=== PATIENT | female | born 1990 | race Caucasian/White ===

== ENCOUNTER 2021-02-20 18:09 | Emergency (ER) | payer OTHER ==
[~2021-02-20] VITALS: Ht 165.1 cm; Wt 95.3 kg
[~2021-02-20 18:09] MED LIST: AMOXICILLIN500 MG PO; IBUPROFEN 30 M800 MG PO; PREDNICOT20 MG PO; TESSALON PERLE200 MG PO; TRAMADOL HCL50 MG PO
== END 2021-02-20 22:03 | disposition home or self-care (01) ==
LOC: ED 18:09
DX: R51.9 Headache, unspecified (principal); R11.2 Nausea with vomiting, unspecified; R42 Dizziness and giddiness

== ENCOUNTER → 2023-10-20 | Outpatient (CLI) | payer OTHER | END | disposition home or self-care (01) | LOC: US 10-13 14:30 | PROVIDERS: ATTEND Nurse Practitioner Women's Health | DX: Z34.81 Encounter for supervision of other normal pregnancy, first trimester (principal); Z3A.08 8 weeks gestation of pregnancy ==

== ENCOUNTER → 2023-12-25 | Outpatient (CLI) | payer OTHER ==
[2023-12-25 09:47] LABS: BASO % 0.3 % (0.0-1.0); BILIRUBIN Negative (Negative); BLOOD Negative (Negative); CLARITY Clear (Clear); COLOR Dark Yellow (Yellow); EOS # 0.2 10*3/uL (0.0-0.4); EOS % 2.1 % (1.0-4.0); GLUCOSE Negative (Negative); HEMATOCRIT 33.1 % (37.0-47.0); KETONE Trace (Negative); LEUKO ESTERASE Negative (Negative); LYMPH # 1.3 10*3/uL (1.3-4.4); LYMPH % 12.5 % (27.0-41.0); MEAN CELL VOLUME 90.9 fl (81.0-99.0); MEAN CORPUSCULAR HGB 32.7 pg (27.0-31.0); MEAN PLATELET VOLUME 10.7 fl (9.6-12.3); MONO # 0.4 10*3/uL (0.1-1.0); MONO % 4.1 % (3.0-9.0); NEUT # 8.3 10*3/uL (2.3-7.9); NITRITE Negative (Negative); PH 5.5 (4.5-8.0); PLATELET COUNT AUTOMATED 215 10*3/uL (130-400); RED BLOOD COUNT 3.64 10*6/uL (4.10-5.10); RED CELL DISTRI WIDTH 12.7 % (0-14.5); SPECIFIC GRAVITY 1.025 (1.001-1.030); WHITE BLOOD COUNT 10.4 10*3/uL (4.8-10.8)
[2023-12-25 09:59] LABS: BACTERIA 2+; MUCOUS 3+
[2023-12-25 10:17] LABS: URINE CREATININE RANDOM 241.1 mg/dL
[2023-12-25 10:39] LABS: ALKALINE PHOSPHATASE 61 U/L (46-116); CHLORIDE 106 mmol/L (98-107); FREE T4 1.05 ng/dl (0.89-1.76); LDH 133 U/L (120-246); POTASSIUM 3.2 mmol/L (3.4-5.1); SGPT/ALT 15 U/L (5-49); TOTAL PROTEIN 6.5 gm/dL (6.0-8.0)
[2023-12-25 10:41] LABS: BUN < 5 mg/dl (9-23)
[2023-12-25 10:55] LABS: VITAMIN D, 25-HYDROXY 38.1 ng/mL (30-100)
[2023-12-26 04:06] LABS: THYROID PEROXIDASE (TPO) AB <9 IU/mL (0-34)
[2023-12-26 05:06] LABS: CYTOMEGALOVIRUS AB, IGG <0.60 U/mL (0.00-0.59)
[2023-12-26 14:08] LABS: THYROGLOBULIN ANTIBODY <1.0 IU/mL (0.0-0.9)
[2023-12-27 16:08] LABS: PARVOVIRUS B19 IGG 1.6 index (0.0-0.8); PARVOVIRUS B19 IGM 0.1 index (0.0-0.8)
== END | disposition home or self-care (01) ==
LOC: LAB 09:09
PROVIDERS: ATTEND Obstetrics & Gynecology
DX: O09.899 Supervision of other high risk pregnancies, unspecified trimester (principal); Z28.39 Other underimmunization status; Z82.79 Family history of other congenital malformations, deformations and chromosomal abnormalities; Z84.81 Family history of carrier of genetic disease; Z87.891 Personal history of nicotine dependence; Z57.9 Occupational exposure to unspecified risk factor; Z87.59 Personal history of other complications of pregnancy, childbirth and the puerperium; Z68.35 Body mass index [BMI] 35.0-35.9, adult; Z3A.12 12 weeks gestation of pregnancy

== ENCOUNTER 2025-02-21 20:55 | Emergency (ER) | payer OTHER ==
[~2025-02-21] VITALS: Ht 165.1 cm; Wt 86.2 kg
[2025-02-21 21:30] LABS: BILIRUBIN Negative (Negative); BLOOD Negative (Negative); CLARITY Clear (Clear); COLOR Yellow (Yellow); KETONE Negative (Negative); LEUKO ESTERASE Trace (Negative); NITRITE Negative (Negative); PH 5.5 (4.5-8.0); SPECIFIC GRAVITY 1.020 (1.001-1.030); UROBILINOGEN 1.0 E.U./dl (0.0-1.0)
[2025-02-21 21:33] LABS: BASO # 0.1 10*3/uL (0.0-0.1); BASO % 0.8 % (0.0-1.0); EOS # 0.3 10*3/uL (0.0-0.4); EOS % 3.5 % (1.0-4.0); MEAN CELL VOLUME 89.7 fl (81.0-99.0); MEAN CORPUSCULAR HGB 29.2 pg (27.0-31.0); MEAN PLATELET VOLUME 10.7 fl (9.6-12.3); MONO # 0.5 10*3/uL (0.1-1.0); MONO % 5.7 % (3.0-9.0); NEUT # 5.7 10*3/uL (2.3-7.9); NEUT % 61.0 % (47.0-73.0); NUCLEATED RED BLOOD CELL 0.0 % (0.0-0.0); NUCLEATED RED BLOOD CELL 0.0 10*3/uL (0.0-0.0); PLATELET COUNT AUTOMATED 289 10*3/uL (130-400); RED CELL DISTRI WIDTH 14.0 % (0-14.5)
[2025-02-21 21:38] LABS: BACTERIA 2+; RBC 0-2 rbc/hpf (0-2)
[2025-02-21] MEDS ORDERED: IOHEXOL 300 MG/ML 100 ML VIAL IV ONE (21:50)
[2025-02-21 21:54] LABS: BUN 9 mg/dl (9-23); SGPT/ALT 21 U/L (5-49)
[2025-02-21] MEDS ORDERED: IOHEXOL 300 MG/ML 100 ML VIAL ONE (22:26)
[2025-02-21] MEDS ORDERED: MACROBID100 M1 PO (23:44)
[2025-02-21] MEDS ORDERED: Nitrofurantoin Monohydrate/N 100 MG CAP PO ONE (23:50)
== END 2025-02-22 00:28 | disposition home or self-care (01) ==
LOC: ED 20:55
PROVIDERS: Emergency Medicine; Nurse Practitioner Family
DX: N39.0 Urinary tract infection, site not specified (principal); K59.00 Constipation, unspecified; K44.9 Diaphragmatic hernia without obstruction or gangrene; Z79.899 Other long term (current) drug therapy

== ENCOUNTER 2025-02-26 02:28 | Emergency (ER) | payer OTHER ==
[~2025-02-26] VITALS: Ht 157.4 cm; Wt 86.2 kg
[~2025-02-26 02:28] MED LIST changes: +MACROBID100 M1 PO
[2025-02-26] MEDS ORDERED: Ondansetron Hydrochloride 4 MG TAB SL ONE (02:50)
[2025-02-26 03:01] LABS: BASO # 0.0 10*3/uL (0.0-0.1); BASO % 0.2 % (0.0-1.0); EOS # 0.1 10*3/uL (0.0-0.4); EOS % 0.9 % (1.0-4.0); MEAN CELL VOLUME 88.3 fl (81.0-99.0); MEAN CORPUSCULAR HGB 29.2 pg (27.0-31.0); MEAN PLATELET VOLUME 10.5 fl (9.6-12.3); MONO # 0.5 10*3/uL (0.1-1.0); MONO % 3.7 % (3.0-9.0); NEUT # 12.0 10*3/uL (2.3-7.9); NEUT % 89.6 % (47.0-73.0); NUCLEATED RED BLOOD CELL 0.0 % (0.0-0.0); NUCLEATED RED BLOOD CELL 0.0 10*3/uL (0.0-0.0); PLATELET COUNT AUTOMATED 254 10*3/uL (130-400); RED CELL DISTRI WIDTH 13.7 % (0-14.5)
[2025-02-26 03:22] LABS: BUN 15 mg/dl (9-23); SGPT/ALT 18 U/L (5-49)
[2025-02-26] MEDS ORDERED: SODIUM CHLORIDE 0.9% 1,000 ML IV SCH (03:30)
[2025-02-26] MEDS ORDERED: Ondansetron4 MG PO (08:13)
[2025-02-26] MEDS ORDERED: TRAMADOL HCL50 MG PO (08:13)
[2025-02-26] MEDS ORDERED: Ondansetron Hydrochloride 4 MG/2 ML VIAL IV ONE (08:15)
== END 2025-02-26 08:25 | disposition home or self-care (01) ==
LOC: ED 02:28
PROVIDERS: Internal Medicine
DX: K80.50 Calculus of bile duct without cholangitis or cholecystitis without obstruction (principal); R10.11 Right upper quadrant pain; R11.2 Nausea with vomiting, unspecified; R19.7 Diarrhea, unspecified

== ENCOUNTER → 2025-02-27 | Outpatient (CLI) | payer OTHER ==
[~2025-02-27] MED LIST changes: +Ondansetron4 MG PO; +SINCALIDE 1.72 MCG in SODIUM CHLORIDE 0.9% 50 ML IV STA
== END | disposition home or self-care (01) ==
LOC: NM 07:00
PROVIDERS: ATTEND Emergency Medicine
DX: K80.20 Calculus of gallbladder without cholecystitis without obstruction (principal)